=== PATIENT | male | born 1985 | race Native Hawaiian/Other Pacific Islander ===

== ENCOUNTER 2021-07-28 15:00 | Outpatient (CLI) | payer BC | END 2021-07-28 20:27 | disposition home or self-care (01) | LOC: RAD 15:00 | PROVIDERS: ATTEND Nurse Practitioner Family | DX: M16.11 Unilateral primary osteoarthritis, right hip (principal); Z96.641 Presence of right artificial hip joint; Z13.820 Encounter for screening for osteoporosis ==

== ENCOUNTER 2021-09-02 16:22 | Outpatient (CLI) | payer BC | END 2021-09-02 18:49 | disposition home or self-care (01) | LOC: RAD 16:22 | PROVIDERS: ATTEND Internal Medicine Rheumatology | DX: M06.4 Inflammatory polyarthropathy (principal) ==

== ENCOUNTER 2022-01-10 15:04 | Outpatient (CLI) | payer BC | END 2022-01-10 19:07 | disposition home or self-care (01) | LOC: CT 15:04 | PROVIDERS: ATTEND Nurse Practitioner Family | DX: R89.9 Unspecified abnormal finding in specimens from other organs, systems and tissues (principal); E29.1 Testicular hypofunction | CPT/HCPCS: Q9963 ==

== ENCOUNTER 2022-01-17 10:02 | Outpatient (CLI) | payer BC | END 2022-01-17 18:51 | disposition home or self-care (01) | LOC: MRI 10:02 | PROVIDERS: ATTEND Nurse Practitioner Family | DX: R90.89 Other abnormal findings on diagnostic imaging of central nervous system (principal); E22.1 Hyperprolactinemia; N64.52 Nipple discharge; E23.6 Other disorders of pituitary gland | CPT/HCPCS: A9576 ==